=== PATIENT | male | born 1975 | race American Indian/Alaskan Native ===

== ENCOUNTER 2016-06-22 09:42 | Outpatient (CLI) | payer MEDICARE ==
--- NOTE | 2016-06-22 10:35 | XRay Report ---
CHEST 2 VIEWS INDICATION: Dyspnea, tachycardia. COMPARISON: None similar at this institution. FINDINGS: Frontal and lateral chest radiographs, 3 images, demonstrate normal cardiomediastinal silhouette. Clear lungs. Intact bones. CONCLUSION: No acute disease in the chest. Thank you for the opportunity to participate in this patient's care.
--- NOTE | 2016-06-22 10:54 | Nuclear Medicine Report ---
LUNG SCAN, VENTILATION AND PERFUSION: Inhalation of Xenon gas demonstrates a normal distribution of the activity throughout both lungs. The wash out phases show no focal retention of activity. Uniform retention is noted. After injection of Technetium 99m macroaggregated albumin gamma camera imaging of the lungs in multiple projections demonstrates normal pulmonary contours with a homogeneous distribution of activity. No focal areas of perfusion deficiency are identified. IMPRESSION: No evidence of pulmonary embolism.
== END 2016-06-22 09:43 | disposition home or self-care (01) ==
LOC: NM 09:42
PROVIDERS: ATTEND Internal Medicine
DX: R00.0 Tachycardia, unspecified (principal)
CPT/HCPCS: 71020; 78582; A9540; A9558